=== PATIENT | male | born 1990 | race Caucasian/White ===

== ENCOUNTER 2020-12-30 06:11 | Emergency (ER) | payer MEDICAID, OTHER ==
[~2020-12-30] VITALS: Ht 193 cm; Wt 115.0 kg
--- NOTE | 2020-12-30 06:36 | NUR ---
priscilla alegre from custodial. pt having testicular pain bilaterally tonight around 1 am. denies pain and denies trauma to area.
[2020-12-30 06:52] LABS: MICROSCOPIC NOT IND
--- NOTE | 2020-12-30 07:00 | NUR ---
assumed care of pt. report from Anna SHARMA pt here for bilat testicular swelling and pain that started earlier this AM. pt denies injury. no urineary c/o. urine sample has been sent by previous RN and US completed pt is currently in custody, commercial internship at bedside. pt is in deputy restraints pt updated on POC
[2020-12-30 07:54] VITALS: BP 127/75
== END 2020-12-30 07:58 | disposition home or self-care (01) ==
LOC: ED 07:36
DX: N50.812 Left testicular pain (principal); Z87.891 Personal history of nicotine dependence
CPT/HCPCS: 76870; 81003; 99284